=== PATIENT | female | born 1950 | race African-American/Black ===

== ENCOUNTER 2017-02-25 01:22 | Emergency (ER) | payer MEDICAID ==
[~2017-02-25] VITALS: Ht 160 cm; Wt 87.0 kg
[~2017-02-25 01:22] MED LIST: ALBU6.7H INH; AMLO10TA80 PO; BENA40TA3 PO; CHOL100046 PO; DOXA4TAB3 PO; GLYB5TAB7 PO; LORA10TA7 PO; LOSA50TA20 PO; METF500T4 PO; METH500T PO; MONT10TA24 PO; PANT40TA4 PO; SITA100T6 PO; THEO200T37 PO
[2017-02-25] MEDS ORDERED: ACETAMINOPHEN 325MG TABLET PO ONE (02:45)
[2017-02-25] MEDS ORDERED: ENALAPRIL 2.5MG/2ML VIAL 2ML IV ONE (02:45)
[2017-02-25 02:51] LABS: HEMOGLOBIN. 13.4 g/dL (12.0-16.0); MEAN CORPUSCULAR HEMOGLOBIN 28.5 pg (28.0-32.0); MEAN CORPUSCULAR HGB CONC 32.8 g/dL (31.0-37.0); MEAN CORPUSCULAR VOLUME 87.1 fL (81.0-99.0); RED BLOOD CELL COUNT 4.71 mill/uL (4.2-5.4); RED CELL DISTRIBUTION WIDTH 13.4 % (11.6-14.6); WHITE BLOOD COUNT 10.3 x1000/uL (4.5-11.0)
[2017-02-25 02:55] LABS: DIFFERENTIAL COMMENT 1
[2017-02-25 03:00] LABS: CALCIUM 9.7 mg/dL (8.5-10.1)
[2017-02-25 03:12] LABS: ATYPICAL LYMPHOCYTES 3
[2017-02-25 03:15] LABS: PLATELET ESTIMATE NORMAL
[2017-02-25 03:16] LABS: PLATELET 279 x1000/uL (130-400)
[2017-02-25] MEDS ORDERED: NIFEDIPINE 10MG CAPSULE PO ONE (04:45)
[2017-02-25] MEDS ORDERED: MORPHINE SULFATE 2 MG/ML CPJ (NOT FOR IM USE) IV ONE (04:45)
[2017-02-25 08:21] VITALS: BP 185/85
[2017-02-26] MEDS ORDERED: TRAV2.5D EACHEYE (09:10)
[2017-02-26] MEDS ORDERED: DIFL5DRO BOTHEYE (09:10)
[2017-02-26] MEDS ORDERED: PIOG15TA13 PO (09:10)
[2017-02-26] MEDS ORDERED: GABA-529 PO (09:10)
== END 2017-02-25 08:24 | disposition home or self-care (01) ==
LOC: ER 01:22
DX: S42.301A Unspecified fracture of shaft of humerus, right arm, initial encounter for closed fracture (principal); J45.909 Unspecified asthma, uncomplicated; E11.9 Type 2 diabetes mellitus without complications; I10 Essential (primary) hypertension; Z88.5 Allergy status to narcotic agent; Z88.6 Allergy status to analgesic agent; Z79.4 Long term (current) use of insulin; Z79.899 Other long term (current) drug therapy; W19.XXXA Unspecified fall, initial encounter; Y93.89 Activity, other specified; Y92.89 Other specified places as the place of occurrence of the external cause; Y99.8 Other external cause status
CPT/HCPCS: 36415; 70450; 71010; 73030; 73090; 73110; 73201; 73502; 73610; 73700; 80048; 85025; 93005; 96374; 96375; 99285; J2270; J3490; Z7610; A4565

== ENCOUNTER 2017-02-26 05:09 | Observation (INO) | payer MEDICAID ==
[~2017-02-26] VITALS: Ht 160 cm; Wt 88.0 kg
[2017-02-26 06:29] LABS: PROTHROMBIN TIME 10.2 sec
[2017-02-26 06:33] LABS: ALANINE AMINOTRANSFERASE 28 IU/L (13-61); ALBUMIN 3.6 g/dL (3.4-5.0); ANION GAP 12; CALCIUM 10.5 mg/dL (8.5-10.1); CARBON DIOXIDE 28 mEq/L (21-32); CHLORIDE 104 mEq/L (98-107); INDEX HEMOLYSI 1 (1-3); INDEX ICTERIC 1 (1-4); INDEX LIPEMIC 1 (1-3); UREA NITROGEN BLOOD 22 mg/dL (7-21); eGFR 55 mL/min (>60)
[2017-02-26] MEDS ORDERED: SODIUM CHLORIDE 0.9% 1,000 ML IV SCH (06:34)
[2017-02-26] MEDS ORDERED: IODIXANOL 320MG/ML 200ML BOTTLE ONE (06:42)
[2017-02-26] MEDS ORDERED: BUPIVACAINE HCL/PF 0.5% (5MG/ML) 10ML ONE ×2 (06:42→07:24)
[2017-02-26] MEDS ORDERED: IOPAMIDOL 20 ML VIAL IT ONE ×2 (06:42→07:23)
[2017-02-26] MEDS ORDERED: SKIN ADHESIVE 0.7 GM EA TOP ONE (06:43)
[2017-02-26 06:46] LABS: CLARITY URINE CLOUDY (CLEAR); COLOR URINE YELLOW (YELLOW); GLUCOSE URINE NEGATIVE (NEGATIVE); KETONES URINE NEGATIVE (NEGATIVE); LEUKOCYTE ESTERASE URINE 1+ (NEGATIVE); NITRITE URINE NEGATIVE (NEGATIVE); OCCULT BLOOD URINE NEGATIVE (NEGATIVE); PROTEIN URINE NEGATIVE (NEGATIVE)
[2017-02-26] MEDS ORDERED: SUCCINYLCHOLINE CHLORIDE 200MG/10ML VIAL IV ONE (07:00)
[2017-02-26] MEDS ORDERED: PROPOFOL 200MG/20ML VIAL IV ONE (07:00)
[2017-02-26] MEDS ORDERED: FENTANYL CITRATE/PF 50MCG/ML 2ML VIAL ONE (07:01)
[2017-02-26] MEDS ORDERED: ROCURONIUM BROMIDE 10MG/ML VIAL 5ML IV ONE (07:01)
[2017-02-26] MEDS ORDERED: LIDOCAINE HCL 1% 20ML VIAL (Pyxis) INJ ONE ×2 (07:01→07:23)
[2017-02-26] MEDS ORDERED: CEFAZOLIN SODIUM 1000MG/VIAL ONE (07:01)
[2017-02-26] MEDS ORDERED: PHENYLEPHRINE HCL 10 MG/ML 1ML (IV VIAL) IV ONE (07:05)
[2017-02-26 07:11] LABS: SQUAMOUS EPITHELIAL CELL URINE 2+ /lpf (RARE/1+)
[2017-02-26] MEDS ORDERED: ONDANSETRON HCL 4MG/2ML VIAL ONE (07:13)
[2017-02-26 07:14] LABS: BACTERIA URINE 1+; RBC URINE 0-2 /hpf (0-2)
[2017-02-26] MEDS ORDERED: ONDANSETRON HCL 4MG/2ML VIAL IV PRN (07:30)
[2017-02-26] MEDS ORDERED: HYDROMORPHONE HCL/PF 2MG/ML CPJ IV PRN (07:30)
[2017-02-26] MEDS ORDERED: ESMOLOL HCL 10MG/ML 10ML VIAL IV ONE (07:59)
[2017-02-26] MEDS ORDERED: METOCLOPRAMIDE HCL 10MG/2ML VIAL ONE (08:08)
[2017-02-26] MEDS ORDERED: LABETALOL HCL 5MG/ML VIAL 20ML IV ONE (08:20)
[2017-02-26] MEDS ORDERED: GLYCOPYRROLATE 0.2 MG/ML 2ML VIAL ONE (08:30)
[2017-02-26] MEDS ORDERED: NEOSTIGMINE METHYLSULFATE 1MG/ML 10 ML VIAL ONE (08:30)
[2017-02-26] MEDS ORDERED: GABA-529 PO (09:10)
[2017-02-26] MEDS ORDERED: TRAV2.5D EACHEYE (09:10)
[2017-02-26] MEDS ORDERED: PIOG15TA13 PO (09:10)
[2017-02-26] MEDS ORDERED: DIFL5DRO BOTHEYE (09:10)
[2017-02-26] MEDS: FENTANYL CITRATE/PF 50MCG/ML 2ML VIAL IV PRN ×3 (09:24→10:30)
[2017-02-26] MEDS ORDERED: MEPERIDINE HCL/PF 25MG/ML CPJ IM PRN (11:30)
[2017-02-26 11:58] VITALS: BP 161/100
[2017-02-26 12:00] VITALS: BP 161/100
[2017-02-26] MEDS: ONDANSETRON HCL 4MG/2ML VIAL IV PRN (12:24)
[2017-02-26] MEDS: KETOROLAC 30MG/ML VIAL IV SCH ×2 (12:24→17:38)
[2017-02-26] MEDS: BLOOD SUGAR DIAGNOSTIC STRIP TEST SCH ×6 (12:32→21:58)
[2017-02-26] MEDS ORDERED: DEXTROSE 50% WATER 50ML SYRINGE IV PRN (14:15)
[2017-02-26] MEDS: INSULIN LISPRO 100 UNITS/ML SUBCUT SCH ×3 (14:58→21:59)
[2017-02-26] MEDS: SODIUM CHLORIDE 0.45% 1,000 ML IV SCH (15:43)
[2017-02-26 16:00] VITALS: BP 133/70
[2017-02-26 20:00] VITALS: BP 100/61
[2017-02-27] VITALS: BP 135/88
[2017-02-27] MEDS: KETOROLAC 30MG/ML VIAL IV SCH ×4 (00:02→16:46)
[2017-02-27 04:00] VITALS: BP 166/90
[2017-02-27] MEDS: SODIUM CHLORIDE 0.45% 1,000 ML IV SCH ×2 (04:46→15:11)
[2017-02-27] MEDS: BLOOD SUGAR DIAGNOSTIC STRIP TEST SCH ×6 (06:36→17:31)
[2017-02-27] MEDS: INSULIN LISPRO 100 UNITS/ML SUBCUT SCH ×3 (07:50→17:31)
[2017-02-27 08:00] VITALS: BP 136/72
[2017-02-27] MEDS: ONDANSETRON HCL 4MG/2ML VIAL IV PRN (11:42)
[2017-02-27 12:00] VITALS: BP 134/71
[2017-02-27 16:00] VITALS: BP 135/78
[2017-02-27 17:04] VITALS: BP 156/88
== END 2017-02-27 18:00 | disposition home or self-care (01) ==
LOC: OR 05:09 → 6EST 05:10 → INTOOBSV 05:10
PROVIDERS: ADMIT Specialist; ATTEND Specialist
DX: K80.20 Calculus of gallbladder without cholecystitis without obstruction (principal)
CPT/HCPCS: 36415; 47562; 73706; 80053; 81001; 82962; 85610; 85730; 88304; 96372; 96374; 96375; 96376; G0168; G0378; J0330; J0690; J1815; J1885; J2175; J2370; J2405; J2710; J2765; J3010; J3490; J7030; J2704; Q9966; Q9967

== ENCOUNTER 2017-07-23 10:59 | Emergency (ER) | payer MEDICAID ==
[~2017-07-23] VITALS: Ht 160 cm; Wt 87.0 kg
[~2017-07-23 10:59] MED LIST changes: +DIFL5DRO BOTHEYE; +GABA-529 PO; +PIOG15TA6 PO; +SITA100T11 PO; -SITA100T6 PO; +THEO200T17 PO; -THEO200T37 PO; +TRAV2.5D EACHEYE
[2017-07-23] MEDS ORDERED: ACETAMINOPHEN 325MG TABLET PO ONE (12:45)
[2017-07-23 12:54] LABS: CLARITY URINE CLEAR (CLEAR); COLOR URINE YELLOW (YELLOW); GLUCOSE URINE 2+ (NEGATIVE); KETONES URINE NEGATIVE (NEGATIVE); LEUKOCYTE ESTERASE URINE NEGATIVE (NEGATIVE); NITRITE URINE NEGATIVE (NEGATIVE); OCCULT BLOOD URINE NEGATIVE (NEGATIVE); PROTEIN URINE TRACE (NEGATIVE)
[2017-07-23 14:09] LABS: BASOPHILS % 1.2 % (0.0-2.0); HEMATOCRIT. 40.8 % (36.0-48.0); HEMOGLOBIN. 13.5 g/dL (12.0-16.0); LYMPHOCYTES % 38.7 % (20.0-50.0); MEAN CORPUSCULAR HEMOGLOBIN 28.6 pg (28.0-32.0); MEAN CORPUSCULAR VOLUME 86.8 fL (81.0-99.0); MEAN PLATELET VOLUME 9.9 fl (7.4-10.4); MONOCYTES % 6.4 % (2.0-8.0); NEUTROPHILS % 50.7 % (40.0-76.0); PLATELET 195 x1000/uL (130-400); RED CELL DISTRIBUTION WIDTH 13.1 % (11.6-14.6)
[2017-07-23 14:26] LABS: CARBON DIOXIDE 28 mEq/L (21-32); CHLORIDE 102 mEq/L (98-107)
[2017-07-23 14:58] VITALS: BP 194/92
== END 2017-07-23 14:58 | disposition home or self-care (01) ==
LOC: ER 12:47
DX: S92.531A Displaced fracture of distal phalanx of right lesser toe(s), initial encounter for closed fracture (principal); R10.9 Unspecified abdominal pain; I10 Essential (primary) hypertension; E11.9 Type 2 diabetes mellitus without complications; J45.909 Unspecified asthma, uncomplicated; W22.09XA Striking against other stationary object, initial encounter; Y93.89 Activity, other specified; Y92.89 Other specified places as the place of occurrence of the external cause; Z88.6 Allergy status to analgesic agent; Z90.49 Acquired absence of other specified parts of digestive tract
CPT/HCPCS: 36415; 73630; 74176; 80053; 81001; 85025; 99285; Z7610

== ENCOUNTER 2021-09-07 21:39 | Emergency (ER) | payer MEDICAID, OTHER ==
[~2021-09-07] VITALS: Ht 160 cm; Wt 89.0 kg
[~2021-09-07 21:39] MED LIST changes: -ALBU6.7H INH; +ALBU6.7H15 INH; -BENA40TA3 PO; +BENA40TA9 PO; -LOSA50TA20 PO; +LOSA50TA41 PO; +METF-414 PO; -METF500T4 PO; -MONT10TA24 PO; +MONT10TA32 PO; -PANT40TA4 PO; +PANT40TA51 PO; -TRAV2.5D EACHEYE; +TRAV2.5D9 EACHEYE
[2021-09-07] MEDS ORDERED: ENOXAPARIN 100MG/ML SYR SUBCUT NR (23:15)
[2021-09-07 23:17] LABS: HEMATOCRIT 40.9 % (36.0-48.0); HEMOGLOBIN 13.7 g/dL (12.0-16.0); MEAN CORPUSCULAR HEMOGLOBIN 30.3 pg (28.0-32.0); PLATELET 260 x1000/uL (130-400); RED CELL DISTRIBUTION WIDTH 13.5 % (11.6-14.6)
[2021-09-07 23:18] LABS: CHLORIDE 109 mEq/L (98-107)
[2021-09-07 23:23] LABS: PARTIAL THROMBOPLASTIN TIME 25.2 sec (23.4-31.0); PROTHROMBIN TIME 10.3 sec (9.6-11.0)
[2021-09-08 00:45] VITALS: BP 158/79
[2021-09-08] MEDS ORDERED: ACETAMINOPHEN 500MG TABLET PO ONE (00:45)
== END 2021-09-08 01:00 | disposition home or self-care (01) ==
LOC: ER 21:39
DX: R60.0 Localized edema (principal); I10 Essential (primary) hypertension; J45.909 Unspecified asthma, uncomplicated; E11.9 Type 2 diabetes mellitus without complications; Z88.5 Allergy status to narcotic agent; Z88.6 Allergy status to analgesic agent; Z79.899 Other long term (current) drug therapy; Z90.49 Acquired absence of other specified parts of digestive tract; Z86.73 Personal history of transient ischemic attack (TIA), and cerebral infarction without residual deficits
CPT/HCPCS: 36415; 80053; 85027; 85610; 85730; 93971; 96372; 99284; J1650